=== PATIENT | male | born 2000 | race Asian ===

== ENCOUNTER 2025-05-07 12:50 | Outpatient (AMB) | payer BC, SELFPAY ==
[2025-05-07 13:03] VITALS: BP 120/80; PULSE 73; TEMP 36.2; O2SAT 99; BMI 28.9
--- NOTE | 2025-05-07 13:03 | A.OFFPC_ITS ---
Vital Signs 05/07/25 13:03 Height 5 ft 10 in Weight 201 lb 4 oz BMI 28.9 BP 120/80 Blood Pressure Location Lt brachial Position Sitting Pulse 73 Pulse Source Pulse Oximeter Temp 97.1 F Temp Source Temporal Artery Scan Pulse Oximetry (%) 99 Oxygen Delivery Method Room Air Intake Visit Reasons: Overlocker/Rash on hand Allergies No Known Allergies Allergy (Verified 05/07/25 13:03) Medication List - Last Reconciled 05/07/25 by Deb Smalls MD No Known Home Meds Tobacco use date assessed: 05/07/25 Dental Screening Dental Screen Date: 05/07/25 Did you have a dental visit in the last 12 months?: No Did you have a dental problem in the last 6 months where you did not have access to dental care?: No Was dental information given to patient?: No HPI HPI Comments History of Present Illness Details The patient is a 24 year old individual presenting to [facility] care with a primary care physician at the suggestion of the patient's girlfriend. The patient reported a recnt rash on the hand, which was a flare-up of eczema. The eczema has since resolved with the application of cocoa butter. The patient takes no daily medications and has no history of childhood illnesses or prior surgeries. The patient's father had a double bypass surgery in 2009. The patient's maternal grandmother had breast cancer in her 70s or 80s. There is no known family history of colon cancer. [facility] Family History (Updated 05/07/25 @ 13:20 by Deb Smalls MD) Father History of open heart surgery Mother No problems noted. 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 1. Little interest or pleasure in doing things: not at all 2. Feeling down, depressed, or hopeless: not at all 3. Trouble falling or staying asleep, or sleeping too much: several days 4. Feeling tired or having little energy: not at all 5. Poor appetite or overeating: several days 6. Feeling bad about yourself - or that you are a failure or have let yourself or your family down: not at all 7. Trouble concentrating on things, such as reading the newspaper or watching television: not at all 8. Moving or speaking so slowly that other people could have noticed. Or the opposite - being so fidgety or restless that you have been moving around a lot more than usual: not at all 9. Thoughts that you would be better off or of hurting yourself in some way: not at all Total score: 2 Source: Developed by Drs. Ilia Tatum, Kimmy Cordon, Sherman Ruiz and colleagues, with an educational pamela from [employer]. Thrive Questionnaire Date Thrive assessed: 05/07/25 I am a: Patient What is your living situation today?: I have a steady place to live Within the past 12 months, did the food you bought not last and you didn't have the money to get more?: Never true Within the past 12 months, did you worry whether your food would run out before you got money to buy more?: Never true Do you have trouble paying for medicines?: No Do you have trouble getting transportation to medical appointments?: No Do you have trouble paying your heating and electricity bill?: No Do you have trouble taking care of your child, family member or friend?: No Do you have trouble with day-to-day activities such as bathing, preparing meals, shopping, managing finances, etc.?: No Are you currently unemployed and looking for a job?: No Are you interested in more education?: No Please select the resources that you would like help with: None Currently or been in a relationship where the following occur: No concerns reported THRIVE Score: 0 AUDIT C Alcohol Use Questionnaire (AUDIT-C) 1. How often do you have a drink containing alcohol?: Monthly or less 2. How many drinks containing alcohol do you have on a typical day when you are drinking?: 1 or 2 3. How often do you have six or more drinks on one occasion?: Less than monthly Total Score: 2 OPAL-7 AMB Questionnaire OPAL-7 Date OPAL - 7 assessed: 05/07/25 Feeling nervous, anxious, or on edge: 0 = Not at all Not being able to stop or control worryin = Not at all Worrying too much about different things: 0 = Not at all Trouble relaxin = Not at all Being so restless that it is hard to sit still: 0 = Not at all Becoming easily annoyed or irritable: 0 = Not at all Feeling afraid as if something awful might happen: 0 = Not at all Total OPAL-7 score (0-4 normal; 5-9 mild; 10-14 moderate; 15-21 severe): 0 Source: Developed by Drs. Ilia Tatum, Kimmy Cordon, Sherman Ruiz and colleagues, with an educational pamela from [employer]. Review of Systems Const Details: Positives besides what was mentioned in HPI are in BOLD Constitutional: No Weight Change, No Fever, No Chills, No Night Sweats, No Fatigue, No Malaise ENT/Mouth: No Hearing Changes, No Ear Pain, No Nasal Congestion, No Sinus Pain, No Hoarseness, No sore throat, No Rhinorrhea, No Swallowing Difficulty Eyes: No Eye Pain, No Swelling, No Redness, No Foreign Body, No Discharge, No Vision Changes Cardiovascular: No Chest Pain, No SOB, No PND, No Dyspnea on Exertion, No Orthopnea, No Claudication, No Edema, No Palpitations Respiratory: No Cough, No Sputum, No Wheezing, No Smoke Exposure, No Dyspnea Gastrointestinal: No Nausea, No Vomiting, No Diarrhea, No Constipation, No Pain, No Heartburn, No Anorexia, No Dysphagia, No Hematochezia, No Melena, No Flatulence, No Jaundice Genitourinary: No Dysmenorrhea, No DUB, No Dyspareunia, No Dysuria, No Urinary Frequency, No Hematuria, No Urinary Incontinence, No Urgency, No Flank Pain, No Urinary Flow Changes, No Hesitancy Musculoskeletal: No Arthralgias, No Myalgias, No Joint Swelling, No Joint Stiffness, No Back Pain, No Neck Pain, No Injury History Skin: No Skin Lesions, No Pruritis, No Hair Changes, No Breast/Skin Changes, No Nipple Discharge Neuro: No Weakness, No Numbness, No Paresthesias, No Loss of Consciousness, No Syncope, No Dizziness, No Headache, No Coordination Changes, No Recent Falls Psych: No Anxiety/Panic, No Depression, No Insomnia, No Personality Changes, No Delusions, No Rumination, No SI/HI/AH/VH, No Social Issues, No Memory Changes, No Violence/Abuse Hx., No Eating Concerns Heme/Lymph: No Bruising, No Bleeding, No Transfusions History, No Lymphadenopathy Endocrine: No Polyuria, No Polydipsia, No Temperature Intolerance Physical exam (Primary Care) Vital Signs: Last Vital Signs Temp 97.1 F 05/07/25 13:03 Pulse 73 05/07/25 13:03 BP 120/80 05/07/25 13:03 Pulse Ox 99 05/07/25 13:03 Oxygen Delivery Method Room Air 05/07/25 13:03 BMI result Body Mass Index 28.9 Tobacco/Smoking Status: Tobacco use Status Tobacco use date assessed 05/07/25 05/07/25 13:05 Patient Tobacco Use Status Current someday Tobacco 05/07/25 13:13 Tobacco use type Cigarette 05/07/25 13:13 e-Cigarette/Vaping Use Never Used 05/07/25 13:13 PHQ-9: PHQ-9 Score PHQ-9: Total score 2 05/07/25 13:05 Thrive Assessment: Date of Thrive Assessment Date Thrive assessed 05/07/25 05/07/25 13:05 Currently or been in a relationship where the following occur: No concerns reported Const Other: Pertinent findings are in BOLD GENERAL APPEARANCE NAD, activity normal for age, well developed/ well nourished, no cyanosis, pallor, or diaphoresis. EYES lids/conjunctiva normal. EARS/NOSE/THROAT Mucous membranes moist, nares normal, lips/teeth normal uvula midline without oral pharyngeal erythema, exudate or swelling TMs normal bilaterally. No lymphangitis/lymphedema. HEAD/NECK normocephalic atraumatic, no facial trauma, neck is supple. RESPIRATORY respiratory effort normal, speaks in full sentences, no tripod position, no accessory muscle use. Lungs clear to auscultation without rhonchi, wheezes, rales CARDIAC Regular rate and rhythm, no edema. ABDOMINAL Soft, ND/NT. No evidence of fluid wave. No pulsatile masses on exam, r ebound tenderness, Rosales sign or pain over Mcburney's point. MUSCLES/EXTREMITIES No abnormal range of motion, no swelling. SKIN Warm, pink and dry. No rashes, dermatoses, petechiae or lesions. NEUROLOGICAL Speech is clear and appropriate. Normal level of consciousness. Gait and coordination are normal. 5/5 strength in all extremities. PSYCH Normal mood and affect. Judgement/competence is appropriate Coding Level of Care Code New Pt Level 3 (88813) Diagnoses Eczema, unspecified type L30.9 Eczema type: unspecified Insomnia, unspecified type G47.00 Insomnia type: unspecified Time Spent (min) 30 Assessment & Plan Assessment & Plan (1) Eczema: Code(s): L30.9 - Dermatitis, unspecified Category: Medical Qualifiers: Eczema type: unspecified Qualified Code(s): L30.9 - Dermatitis, unspecified Plan: - The patient reported a recent eczema flare-up on the hand, which has since resolved with cocoa butter. - No further intervention is required at this time. (2) Insomnia: Code(s): G47.00 - Insomnia, unspecified Category: Medical Qualifiers: Insomnia type: unspecified Qualified Code(s): G47.00 - Insomnia, unspecified Plan: - The patient reports occasional difficulty falling asleep once or twice a week with no clear pattern. - Educated the patient that this could be a mild withdrawal symptom from weekend marijuana use. - No treatment initiated at this time; will continue to monitor. Plan I introduced myself and established care with the patient as the patient's new primary care physician. We discussed the patient's main goal for the visit, which is to establish care, and addressed the recent eczema flare-up, which has resolved. I counseled the patient on marijuana use, highlighting the risk of increasing dependency and anxiety with more frequent use, and advised the patient to inform me if usage increases. I ordered general labs, including blood count, as well as HIV and hepatitis C screening, with the patient's consent. I instructed the patient to have the lab work done at the main hospital across the street, preferably fasting. We scheduled a follow-up appointment in three months for a full physical exam and to discuss vaccines. Given the patient's good general health, I mentioned that future visits could potentially be spaced out to every one to three years. Orders: Orders Complete Blood Count no Diff Today Z00.00 - Encounter for general adult medical examination without abnormal findings Comprehensive Met. Panel Today Z00.00 - Encounter for general adult medical exa mination without abnormal findings Hemoglobin A1c Today Z00.00 - Encounter for general adult medical examination without abnormal findings HIV Ab/Ag Today Z00.00 - Encounter for general adult medical examination without abnormal findings Hepatitis C Antibody Reflex Today Z00.00 - Encounter for general adult medical examination without abnormal findings Lipid Panel Today Z00.00 - Encounter for general adult medical examination without abnormal findings TSH reflex Free T4 Today Z00.00 - Encounter for general adult medical examination without abnormal findings Vitamin D 25-OH Total Today Z00.00 - Encounter for general adult medical e xamination without abnormal findings
== END 2025-05-07 13:35 | disposition home or self-care (01) ==
LOC: HO.HMCH 12:51
PROVIDERS: Visit Provider Internal Medicine
DX: L30.9 Dermatitis, unspecified (principal); G47.00 Insomnia, unspecified